=== PATIENT | female | born 1985 | race Caucasian/White ===

== ENCOUNTER 2018-04-19 13:09 | Inpatient (IN) | payer OTHER ==
[~2018-04-19] VITALS: Ht 157.5 cm; Wt 72.6 kg
== END 2018-05-15 13:37 | DRG 735 ==
LOC: OB/GYN → O/R 05-12 05:55 → OB/GYN 05-12 05:55
PROVIDERS: Obstetrics & Gynecology Gynecologic Oncology
PROC: 0UT10ZZ Resection of Left Ovary, Open Approach (ICD-10-PCS; 2018-05-12)
PROC: 0UT60ZZ Resection of Left Fallopian Tube, Open Approach (ICD-10-PCS; 2018-05-12)
PROC: 0DTU0ZZ Resection of Omentum, Open Approach (ICD-10-PCS; 2018-05-12)
PROC: 0WBH0ZZ Excision of Retroperitoneum, Open Approach (ICD-10-PCS; 2018-05-12)
PROC: 0DTJ0ZZ Resection of Appendix, Open Approach (ICD-10-PCS; 2018-05-12)
PROC: 07TD0ZZ Resection of Aortic Lymphatic, Open Approach (ICD-10-PCS; principal; 2018-05-12 12:45)
DX: D27.1 Benign neoplasm of left ovary (principal); J45.909 Unspecified asthma, uncomplicated